=== PATIENT | female | born 1940 | race Caucasian/White ===

== ENCOUNTER 2016-08-11 11:26 | Outpatient (CLI) | payer MEDICARE ==
[2016-08-11 11:49] LABS: #Basophils 0.1 thou/uL (0.0-0.2); #Eosinphils 0.2 thou/uL (0.0-0.7); #Lymphocytes 1.7 thou/uL (1.20-3.40); #Monocytes 0.4 thou/uL (0.11-0.59); #Neutrophils 4.4 thou/uL (1.40-6.50); %Basophils 1.8 % (0.0-1.0); %Eosinophils 3.4 % (0.0-10.0); %Lymphocytes 24.7 % (21.0-51.0); %Monocytes 5.9 % (0.0-10.0); %Neutrophils 64.2 % (42.0-75.0); Hemoglobin 13.5 g/dL (12.0-16.0); Mean Corpuscular HGB CONC 33.2 g/dL (32.0-36.0); Mean Corpuscular Hemoglobin 31.7 pg (27.0-31.0); Mean Corpuscular Volume 95.4 fl (81.0-99.0); Mean Platelet Volume 7.6 fL (7.4-10.4); Platelet Count 247 thou/uL (130-400); RBC Distribution Width 11.7 % (11.5-14.5); Red Blood Cell (RBC) Count 4.27 mill/uL (4.20-5.40); White Blood Cell (WBC) Count 6.8 thou/uL (4.8-10.8)
[2016-08-11 12:01] LABS: Hemoglobin A1c 6.6 % (4.0-6.0)
[2016-08-11 12:03] LABS: ALT (SGPT) 21 U/L (0-55); AST (SGOT) 28 U/L (5-34); Albumin 4.1 g/dL (3.4-4.8); Alkaline Phosphatase 140 U/L (40-150); Anion Gap 14 mmol/L (10-20); BUN (Urea Nitrogen) 13 mg/dL (9.8-20.1); Bilirubin, Total 0.6 mg/dL (0.2-1.2); Calc. Creatinine Clearance 0 mL/min (70-130); Calcium 9.9 mg/dL (7.8-10.44); Carbon Dioxide 27 mmol/L (23-31); Chloride 99 mmol/L (98-107); Estimated GFR-MDRD 66; Globulin 4.2 g/dL (2.4-3.5); Glucose 162 mg/dL (83-110); Protein, Total 8.3 g/dL (5.8-8.1); Sodium 135 mmol/L (136-145)
== END 2016-08-11 11:27 | disposition home or self-care (01) ==
LOC: MADLAB 11:26
PROVIDERS: ATTEND Family Medicine
DX: E11.49 Type 2 diabetes mellitus with other diabetic neurological complication (principal); I15.2 Hypertension secondary to endocrine disorders; E03.8 Other specified hypothyroidism
CPT/HCPCS: 36415; 80053; 83036; 84443; 85025

== ENCOUNTER 2017-11-23 10:22 | Outpatient (CLI) | payer MEDICARE ==
--- NOTE | 2017-11-23 12:50 | RAD ---
CHEST TWO VIEWS: HISTORY: Pneumonia. Followup. COMPARISON: 11/14/2017 FINDINGS: The cardiac silhouette is unremarkable. The pulmonary vasculature is at the upper limits of normal. The mediastinum is midline with aortic calcification. The lungs remain hyperinflated. Nodular opacity within the right upper lobe is again demonstrated. Adjacent, ill defined, nodular op acities over the right upper and lower lobes are now more apparent. No lobar consolidation is appare nt. No evidence of pneumothorax or pleural fluid. IMPRESSION: 1. Interval increase in opacities throughout the right lung. 2. Evolution of pneumonitis may be the cause. Continued close radiographic followup versus CT chest is recommended. 3. Atherosclerosis. 4. Chronic obstructive pulmonary disease. POS: [facility]
== END 2017-11-23 10:23 | disposition home or self-care (01) ==
LOC: MADRAD 10:22
PROVIDERS: ATTEND Family Medicine
DX: J18.8 Other pneumonia, unspecified organism (principal); R91.8 Other nonspecific abnormal finding of lung field; I70.90 Unspecified atherosclerosis; J44.9 Chronic obstructive pulmonary disease, unspecified
CPT/HCPCS: 71046

== ENCOUNTER 2017-11-26 11:05 | Outpatient (CLI) | payer MEDICARE ==
--- NOTE | 2017-11-26 13:24 | CT ---
CT CHEST WITHOUT CONTRAST: Date: 11/26/17 Multiple axial tomograms obtained through chest without IV enhancement. INDICATION: Pulmonary nodules noted on chest x-ray. Correlation made to the chest x-ray of 11/23/17. FINDINGS: There are numerous pulmonary nodular densities seen. In the right upper lobe, there is a larger, irre gularly shaped nodular density in the peripheral right upper lung measuring up to 2.0 cm in the axial plane. There are other small right upper lobe nodules measuring up to 1.0 cm. There is a focal density with air bronchograms in the right lower lobe adjacent to the fissure mid tere ng measuring 2.0 cm. Other scattered nodular densities in the right lower lobe measuring up to 1.0 cm . A 1.0 cm nodular density in the peripheral left upper lobe and another more faint ill-defined nodular density, subcentimeter, in the left upper lobe. Linear opacities extending from the left suprahilar region, best appreciated on coronal imaging, suggests streaky scarring or infiltrate. Mild atelectasi s in the left lung base adjacent to the diaphragm. Small diaphragmatic hernia. No mediastinal adenopathy. Images through upper abdomen unremarkable. IMPRESSION: Numerous poorly demarginated, irregular shaped nodules are seen in the right lung. There are at least two small nodular densities in the left upper lobe with some streaky infiltrative changes extending into the left apex from the hilum. Considerations include an atypical infectious process. Granulomato us infections cannot be excluded. Metastatic lesions are not excluded, although these are poorly marky inated and somewhat atypical for metastatic nodules. Close follow-up is recommended. POS: [facility]
== END 2017-11-26 11:06 | disposition home or self-care (01) ==
LOC: MADCT 11:05
PROVIDERS: ATTEND Family Medicine
DX: R91.8 Other nonspecific abnormal finding of lung field (principal)
CPT/HCPCS: 71250

== ENCOUNTER 2018-04-17 10:10 | Outpatient (CLI) | payer MEDICARE ==
--- NOTE | 2018-04-17 12:37 | CT ---
CT THORAX NONCONTRAST: DATE: 04/17/2018. HISTORY: A 77-year-old female for followup of pulmonary nodules. COMPARISON: 11/26/2017 CT. FINDINGS: The previously demonstrated multifocal, ill-defined pulmonary nodules, right greater than left, have mostly resolved. Minimal, faint residual ill-defined densities are present in the upper portion of t he right upper lobe. There are no new pulmonary nodules. There is no mediastinal lymphadenopathy. It is more difficult to evaluate for hilar lymphadenopathy without IV contrast. The right inferior h ilum is enlarged. This is probably due to blood vessels, although it is difficult to be sure without IV contrast. This appearance is unchanged since the previous CT. There is no pleural effusion or p neumothorax. No consolidation. Trachea and bilateral mainstem bronchi are patent and clear. IMPRESSION: 1. Almost complete resolution of multiple bilateral infectious/inflammatory pulmonary nodules. Smal l residual densities in the right lower lobe may represent small scars. 2. No evidence of neoplasm. [facility] POS: [facility]
== END 2018-04-17 10:11 | disposition home or self-care (01) ==
LOC: MADRAD 10:10
PROVIDERS: ATTEND Internal Medicine Critical Care Medicine
DX: R91.1 Solitary pulmonary nodule (principal)
CPT/HCPCS: 71250